=== PATIENT | female | born 1940 | race Caucasian/White ===

== ENCOUNTER → 2017-01-19 | Outpatient (CLI) | payer OTHER | LOC: CIMAGING 14:06 | DX: Z12.31 Encounter for screening mammogram for malignant neoplasm of breast (principal) | CPT/HCPCS: G0202 ==

== ENCOUNTER → 2017-02-21 | Outpatient (CLI) | payer OTHER | LOC: FIMAGING 13:03 | PROVIDERS: ATTEND Internal Medicine | DX: N63 Unspecified lump in breast (principal) | CPT/HCPCS: 76641; G0206 ==

== ENCOUNTER → 2017-03-01 | Outpatient (CLI) | payer OTHER ==
[~2017-03-01] MED LIST: THROMBIN (BOVINE) 5,000 UNIT VIAL TP ONE
[2017-03-07 15:03] LABS: ACCESSION # HR17-18968; INTERPRETATION See Comments
== END ==
LOC: FIMAGING 11:25
PROVIDERS: ATTEND Internal Medicine
PROC: 0HBT3ZX Excision of Right Breast, Percutaneous Approach, Diagnostic (ICD-10-PCS; principal; 2017-03-01)
DX: C50.911 Malignant neoplasm of unspecified site of right female breast (principal)
CPT/HCPCS: 19083; 88360; 88361; G0206

== ENCOUNTER → 2017-03-21 | Outpatient (CLI) | payer OTHER | LOC: FIMAGING 07:15 | PROVIDERS: ATTEND Surgery | PROC: 3E0W3KZ Introduction of Other Diagnostic Substance into Lymphatics, Percutaneous Approach (ICD-10-PCS; principal; 2017-03-21) | PROC: 0HHT31Z Insertion of Radioactive Element into Right Breast, Percutaneous Approach (ICD-10-PCS; principal; 2017-03-21) | DX: C50.911 Malignant neoplasm of unspecified site of right female breast (principal) | CPT/HCPCS: 19281; 38792; 76098; A9520 ==

== ENCOUNTER 2017-03-22 11:07 | Observation (INO) | payer OTHER ==
--- NOTE | 2017-03-22 11:25 | EDPHY ---
H & P Stated Complaint: c/o SOB/Cough since last pm - -had lumps removal rest breaast/ arm Source: Patient Exam Limitations: No limitations - Personal History Current Tetanus Diphtheria and Acellular Pertussis (TDAP): Yes - Medical/Surgical History Hx Asthma: No Hx Chronic Respiratory Disease: No Hx Diabetes: No Hx Cardiac Disease: No Hx Renal Disease: No Hx Cirrhosis: No Hx Alcoholism: No Other PMH: denies - Family History Significant Family History: No pertinent family hx - Social History Smoking Status: Never smoked Alcohol Use: Sober Drug Use: None Time Seen by Provider: 03/22/17 11:18 HPI/ROS: CHIEF COMPLAINT: shortness of breath HISTORY OF PRESENT ILLNESS: Patient is a 76-year-old female who is 1 day status post lumpectomy and axillary lymph node removal yesterday with Dr. Arthur Roblero. She states that this morning she has been short of breath and can hardly walk up stairs. She is saturating 92% on room air. She has not had fever. She was intubated and under general anesthesia yesterday for the procedure. She does not have any history of cardiac or pulmonary disease. She has not had any leg pain or swelling. She is not a smoker. She has not had a cough or recent illness. REVIEW OF SYSTEMS: Constitutional: denies: chills, fever, recent illness, recent injury EENTM: denies: blurred vision, double vision, nose congestion Respiratory: See HPI Cardiac: denies: chest pain, irregular heart rate, lightheadedness, palpitations Gastrointestinal/Abdominal: denies: abdominal pain, diarrhea, nausea, vomiting, blood streaked stools Genitourinary: denies: dysuria, frequency, hematuria, pain Musculoskeletal: denies: joint pain, muscle pain Skin: denies: lesions, rash, jaundice, bruising Neurological: denies: headache, numbness, paresthesia, tingling, dizziness, weakness Hematologic/Lymphatic: denies: blood clots, easy bleeding, easy bruising Immunologic/allergic: denies: HIV/AIDS, transplant EXAM: GENERAL: Well-appearing, well-nourished and in no acute distress. HEAD: Atraumatic, normocephalic. EYES: Pupils equal round and reactive to light, extraocular movements intact, sclera anicteric, conjunctiva are normal. ENT: TMs normal, nares patent, oropharynx clear without exudates. Moist mucous membranes. NECK: Normal range of motion, supple without lymphadenopathy or JVD. LUNGS: Breath sounds clear to auscultation bilaterally and equal. No wheezes rales or rhonchi. HEART: Regular rate and rhythm without murmurs, rubs or gallops. ABDOMEN: Soft, nontender, normoactive bowel sounds. No guarding, no rebound. No masses appreciated. BACK: No CVA tenderness, no spinal tenderness, step-offs or deformities EXTREMITIES: Normal range of motion, no pitting or edema. No clubbing or cyanosis. NEUROLOGICAL: Cranial nerves II through XII grossly intact. Normal speech, normal gait. 5/5 strength, normal movement in all extremities, normal sensation PSYCH: Normal mood, normal affect. SKIN: Incisions clean dry and intact, significant bruising around right breast and axilla. (Dimitrios Jeff) Constitutional: Initial Vital Signs Temperature (C) 36.6 C 03/22/17 11:19 Heart Rate 73 03/22/17 11:19 Respiratory Rate 18 03/22/17 11:19 Blood Pressure 128/70 H 03/22/17 11:19 O2 Sat (%) 90 L 03/22/17 11:19 O2 Delivery Mode [Procedural Non-Rebreather Mask 3rd] O2 Delivery Mode [Procedural Nasal Cannula,Non-Rebreather Mask 2nd] O2 Delivery Mode [Procedural Non-Rebreather Mask,Bag Valve Mask 1st] O2 Delivery Mode [.Immediate Nasal Cannula Pre-Procedure] O2 Delivery Mode Nasal Cannula O2 (L/minute) [Procedural 3rd] 15 O2 (L/minute) [Procedural 2nd] 15 O2 (L/minute) [Procedural 1st] 15 O2 (L/minute) [.Immediate Pre- 4 Procedure] O2 (L/minute) 2 Allergies/Adverse Reactions: No Known Allergies Allergy (Unverified 03/22/17 11:19) Home Medications: Medication Instructions Recorded Aspirin EC [Aspirin EC 81 mg (*)] 81 mg PO HS 03/22/17 Lisinopril/Hctz 20/12.5MG 1 ea PO HS 03/22/17 [Zestoretic/Prinzide 20/12.5MG (*)] Ranitidine HCl [Zantac 75] 75 mg PO HS 03/22/17 Medical Decision Making - Diagnostics Imaging: Discussed imaging studies w/ sewing machine adjuster Radiologist, I viewed and interpreted images myself - Diagnostics EKG Interpretation: An EKG obtained and was read and documented in trace view. Please see trace view for full reading and report. Sinus rhythm, no acute ischemic changes ( Dimitrios Jeff) Procedures: Percutaneous Thoracostomy: I placed a thoracostomy tube with Heimlich valve suctioning in the patient's right chest midclavicular line 2nd intercostal space. the pneumothorax was successfully reinflated. We will observe. Chest x-ray confirmed placement. Procedure: Procedural sedation. Indication: Pneumothorax. A pre-sedation evaluation was completed on the patient just prior to the procedure. Patient is an appropriate candidate for procedural sedation with a normal 3-3-2 rule assessment and a Mallampati airway score of class 2. The risks of the sedation were discussed including but not limited to dysrhythmia, need for airway intervention or general anesthesia, disability, ; and verbal consent obtained. A timeout was observed and patient's identity confirmed. The patient was sedated with ketamine 60 mg and propofol 30 mg. The patient was monitored with continuous pulse oximetry, capnography, and youth nutritional monitor. There were no complications and no significant hypoxemia. I remained at the bedside for the sedation. The total time I spent in the procedural sedation was 16 minutes. (Dimitrios Jeff) ED Course/Re-evaluation: 1648: I spoke with Dr. Roblero has accepted admission of this patient. Observation status. [facility] Patient agrees for [facility] transport. (Jorge Jorge) I feel that the patient has no hypoxia, no leg pain or swelling no tachycardia. She however is requesting we do a CT scan to rule out PE. She does have some risk because of her procedure yesterday. Discussed the CT findings. I consented the patient to needle thoracostomy with Heimlich valve. I discussed the case with Dr. Arthur Roblero who agrees. I will sedate her for the procedure. 2:30 p.m. the patient tolerated the procedure well. Her lung is reinflated. We will observe her. I spoke with Dr. Roblero who reviewed the x-rays and recommends discharge home and follow up tomorrow or Monday. 3:00 p.m. the patient continues to be very afraid anxious to go home. She states that she has to climb stairs this concerned because she lives alone. She is also concerned about pain management. I have given her Toradol because she has declined opiates. I will discuss with Dr. Roblero again to admit for observation. 3:20 p.m. care transferred to Dr. Jorge Jorge. We are awaiting Dr. Roblero or Natan call back. (Dimitrios Jeff) Differential Diagnosis: Partial list of the Differential diagnosis considered include but were not limited to; pneumothorax, PE, pleurisy, hematoma and although unlikely based on the history and physical exam, I also considered hemorrhage, acute coronary disease. (Dimitrios Jeff) - Data Points Laboratory Results: Laboratory Results 03/22/17 11:30 03/22/17 11:30 Medications Given: Discontinued Medications Sodium Chloride (Ns) 1,000 mls @ 0 mls/hr IV ONCE ONE PRN Reason: Wide Open Stop: 03/22/17 13:50 Last Admin: 03/22/17 13:20 Dose: 1,000 mls Ketamine HCl (Ketamine) 60 mg IVP EDNOW ONE Stop: 03/22/17 13:37 Last Admin: 03/22/17 13:32 Dose: 60 mg Ketorolac Tromethamine (Toradol) 15 mg IVP EDNOW ONE Stop: 03/22/17 14:13 Last Admin: 03/22/17 14:17 Dose: 15 mg Ondansetron HCl (Zofran) 4 mg IVP EDNOW ONE Stop: 03/22/17 13:49 Last Admin: 03/22/17 13:30 Dose: 4 mg Propofol (Diprivan) 30 mg IVP EDNOW ONE Stop: 03/22/17 13:37 Last Admin: 03/22/17 13:33 Dose: 30 mg Departure - Departure Disposition: [facility] Inpatient Acute Clinical Impression: Pneumothorax Qualifiers: Pneumothorax type: postprocedural Qualified Code(s): J95.811 - Postprocedural pneumothorax Condition: Fair
[2017-03-22 11:38] LABS: % IMMATURE GRANULYOCYTES 0.5 % (0.0-1.1); ABSOLUTE IMMATURE GRANULOCYTES 0.05 10^3/uL (0.00-0.10); ADD DIFF? NO; ADD MORPH? NO; ADD SCAN? NO; ATYPICAL LYMPHOCYTE FLAG 10 (0-99); FRAGMENT RBC FLAG 0 (0-99); HEMATOCRIT 33.2 % (38.0-47.0); HEMOGLOBIN 12.1 g/dL (12.6-16.3); LEFT SHIFT FLG 0 (0-99); LIPEMIA HEMOLYSIS FLAG 90 (0-99); MEAN CELL HEMOGLOBIN 30.3 pg (27.9-34.1); MEAN CELL HEMOGLOBIN CONCENTR. 36.4 g/dL (32.4-36.7); MEAN PLATELET VOLUME 8.4 fL (8.7-11.7); PLATELET CLUMPS FLAG 0 (0-99); PLATELET COUNT 220 10^3/uL (150-400); RED CELL DISTRIBUTION WIDTH 12.6 % (11.5-15.2)
--- NOTE | 2017-03-22 11:39 | CPEKG ---
Heart Rate: 63 RR Interval: 952 P-R Interval: 188 QRSD Interval: 84 QT Interval: 420 QTC Interval: 430 P [place]: 96 QRS [place]: 74 T Wave [place]: 47 EKG Severity - BORDERLINE ECG - EKG Impression: SINUS RHYTHM EKG Impression: BORDERLINE T ABNORMALITIES, ANTERIOR LEADS Electronically Signed By: Dimitrios Jeff 22-Mar-2017 11:42:00
[2017-03-22 11:49] LABS: APTT 30.3 SEC (23.0-38.0); INR 1.05 (0.83-1.16); PROTIME(PATIENT) 13.4 SEC (12.0-15.0)
[2017-03-22 11:51] LABS: ANION GAP 14 mEq/L (8-16); CALCIUM 9.1 mg/dL (8.5-10.4); CARBON DIOXIDE 22 mEq/l (22-31); CHLORIDE 95 mEq/L (97-110); CREATININE 0.8 mg/dL (0.6-1.0); GLOMERULAR FILTRATION RATE > 60; GLUCOSE 110 mg/dL (70-100); POTASSIUM 3.5 mEq/L (3.5-5.2); SODIUM 131 mEq/L (134-144)
[2017-03-22] MEDS ORDERED: IOPAMIDOL (ISOVUE 370) 100 ML BTL IV ONE (11:57)
[2017-03-22] MEDS ORDERED: KETAMINE 100 MG/10 ML SYR IVP ONE (13:11)
[2017-03-22] MEDS ORDERED: PROPOFOL 200 MG/20 ML VIAL ONE (13:11)
[2017-03-22] MEDS ORDERED: KETAMINE 500 MG/10 ML VIAL ONE (13:12)
[2017-03-22] MEDS ORDERED: ONDANSETRON 4 MG/2 ML VIAL ONE (13:32)
[2017-03-22] MEDS ORDERED: KETAMINE 500 MG/10 ML VIAL IVP ONE (13:36)
[2017-03-22] MEDS ORDERED: PROPOFOL 200 MG/20 ML VIAL IVP ONE (13:36)
[2017-03-22] MEDS ORDERED: ONDANSETRON 4 MG/2 ML VIAL IVP ONE (13:48)
[2017-03-22] MEDS ORDERED: NS 1,000 ML IV ONE (13:49)
[2017-03-22] MEDS ORDERED: KETOROLAC 15 MG/1 ML SDV IVP ONE (14:12)
[2017-03-22 18:48] VITALS: RESP 16
[2017-03-22] MEDS ORDERED: HYDROCODONE/APAP 5/325 TAB PO PRN (18:52)
[2017-03-22] MEDS ORDERED: ZOLPIDEM TARTRATE 5 MG TAB PO PRN (18:54)
[2017-03-22] MEDS ORDERED: ONDANSETRON 4 MG/2 ML VIAL IVP PRN (18:54)
--- NOTE | 2017-03-22 19:00 | GHP ---
[f rep st] PREOP HISTORY AND PHYSICAL DATE OF ADMISSION: 03/22/2017 REASON FOR ADMISSION: Pneumothorax. HISTORY OF PRESENT ILLNESS: 76-year-old female, 1 day status post right lumpectomy with a sentinel lymph node biopsy. She underwent an unremarkable initial perioperative course. This was done with the use of a laryngeal mask airway. She did undergo a preoperative mammographic wire localization. She was discharged uneventfully from the PACU last night. She noted mild chest discomfort beginning late last evening. She presented to the urgent care center today, where her imaging studies disclosed a right pneumothorax. A percutaneous chest tube was placed. The patient has requested admission for overnight observation, as she lives alone. The patient notes notable improvement in her breathing. She was admitted for overnight observation at this time. Patient denies any antecedent cough or any antecedent upper respiratory infection. She has minimal surgical site pain. PAST MEDICAL HISTORY: Hypertension, GERD, right breast carcinoma. PAST SURGICAL HISTORY: Right lumpectomy with axillary sentinel node biopsy. MEDICATIONS: Lisinopril, multivitamin, probiotic, vitamin D, ranitidine, aspirin. ALLERGIES: No known drug allergies. SOCIAL HISTORY: She is a nonsmoker. She is . She is retired. PHYSICAL EXAMINATION: VITAL SIGNS: Temperature 36.8, blood pressure 120/60. Pulse is 58, respirations 16. GENERAL: Patient is alert, appropriate, comfortable, anicteric, no cervical or supraclavicular lymphadenopathy. HEENT: Nose palpable with crepitus. HEART: Regular without murmurs. LUNGS: Clear bilaterally. Chest tube dynamic without current air leak. RIGHT BREAST: With appropriate ecchymosis. Incisions are clean without erythema. Minimal tenderness. ABDOMEN: Soft, nontender. EXTREMITIES: Unremarkable. IMAGING: CT images directly reviewed on PACS as is her post chest tube placement image. Moderate right pneumothorax noted, no pleural fluid post placement with good improvement with lung aeration. IMPRESSION: Postoperative pneumothorax, etiology unclear. Diagnostic considerations include barotrauma versus wire needle placement versus cautery injury. A small bore chest has been adequately re-expanded without evidence of ongoing air leak. Patient will be admitted for overnight observation. All patient's questions were entertained. /[id number]/MODL and [id number]/MODL, 03/22/17 [id number] [facility]
[2017-03-22] MEDS ORDERED: LISINOPRIL/HCTZ 20/12.5MG 1 EA TAB PO SCH (21:00)
[2017-03-22] MEDS ORDERED: ASPIRIN EC 81 MG TAB PO SCH (21:00)
[2017-03-22] MEDS ORDERED: FAMOTIDINE 20 MG TAB PO SCH (21:00)
[2017-03-22] MEDS: KETOROLAC 30 MG/1 ML SDV IVP PRN (21:30)
[2017-03-23] MEDS: KETOROLAC 30 MG/1 ML SDV IVP PRN (06:47)
--- NOTE | 2017-03-23 08:08 | SOAPPROG ---
SOAP Progress Note Assessment/Plan: Assessment: no complaints. no chest pain. afebrile. bp 90-100. comfortable. heart reg. lungs clear. chest tube adynamic - no leak. CXR - no PTX. tube removed. repeat film later today. home assuming no recurrence. Plan: 03/23/17 08:07 Objective: Vital Signs Temp Pulse Resp BP Pulse Ox 36.8 C 63 16 95/50 L 96 03/23/17 06:00 03/23/17 06:00 03/23/17 06:00 03/23/17 06:00 03/23/17 06:00 03/22/17 03/23/17 03/24/17 05:59 05:59 05:59 Intake Total 1000 Balance 1000 PT 13.4 SEC (12.0-15.0) 03/22/17 11:30 INR 1.05 (0.83-1.16) 03/22/17 11:30 ICD10 Worksheet Patient Problems: Problems Problem Status Onset Pneumothorax Acute
[2017-03-23 08:24] VITALS: PULSE 66
[2017-03-23 10:54] VITALS: BP 91/45; TEMP 98.1; O2SAT 95
== END 2017-03-23 13:37 | disposition home or self-care (01) ==
LOC: CED 11:07 → CEDHOLD 14:56 → F1N 18:04
PROVIDERS: ADMIT Surgery; ATTEND Surgery
PROC: 0W9930Z Drainage of Right Pleural Cavity with Drainage Device, Percutaneous Approach (ICD-10-PCS; principal; 2017-03-22)
DX: J95.811 Postprocedural pneumothorax (principal)
CPT/HCPCS: 32551; 71010; 71275; 93005; 96374; 96375; 99152; 99285; J1885; J2405; J2704; Q9967; 80048-PO; 85025-PO; 85610-PO; 85730-PO

== ENCOUNTER → 2017-05-15 | Outpatient (CLI) | payer OTHER | LOC: BRMIMAGING 14:40 | PROVIDERS: ATTEND Internal Medicine Hematology & Oncology | DX: Z13.820 Encounter for screening for osteoporosis (principal); Z78.0 Asymptomatic menopausal state; Z85.3 Personal history of malignant neoplasm of breast ==

== ENCOUNTER → 2017-08-03 | Outpatient (CLI) | payer OTHER | LOC: FIMAGING 10:15 | PROVIDERS: ATTEND Internal Medicine Hematology & Oncology | DX: L76.32 Postprocedural hematoma of skin and subcutaneous tissue following other procedure (principal) | CPT/HCPCS: 76641; G0206 ==

== ENCOUNTER → 2017-10-30 | Outpatient (CLI) | payer OTHER ==
[~2017-10-30] MED LIST changes: +GADOBUTROL 10 ML VIAL IVP ONE; -THROMBIN (BOVINE) 5,000 UNIT VIAL TP ONE
== END ==
LOC: FIMAGING 12:00
DX: D18.03 Hemangioma of intra-abdominal structures (principal); C50.919 Malignant neoplasm of unspecified site of unspecified female breast
CPT/HCPCS: 74183; A9585

== ENCOUNTER → 2018-02-13 | Outpatient (CLI) | payer OTHER | LOC: FIMAGING 11:50 | PROVIDERS: ATTEND Surgery | DX: Z12.31 Encounter for screening mammogram for malignant neoplasm of breast (principal); Z85.3 Personal history of malignant neoplasm of breast; Z80.3 Family history of malignant neoplasm of breast ==

== ENCOUNTER → 2018-08-28 | Outpatient (CLI) | payer OTHER | LOC: BMCIMAGING 09:49 | PROVIDERS: ATTEND Internal Medicine Hematology & Oncology | DX: Z13.820 Encounter for screening for osteoporosis (principal); M85.88 Other specified disorders of bone density and structure, other site; Z78.0 Asymptomatic menopausal state; Z85.3 Personal history of malignant neoplasm of breast ==

== ENCOUNTER → 2018-11-15 | Outpatient (CLI) | payer OTHER | LOC: FIMAGING 11:46 | PROVIDERS: ATTEND Internal Medicine Hematology & Oncology | DX: R92.8 Other abnormal and inconclusive findings on diagnostic imaging of breast (principal); Z85.3 Personal history of malignant neoplasm of breast ==